=== PATIENT | female | born 1975 | race Hispanic/Latino ===

== ENCOUNTER 2019-11-15 13:51 | Emergency (ER) | payer OTHER ==
[2019-11-15] MEDS ORDERED: ACETAMINOPHEN 325 MG TAB ONE (14:16)
[2019-11-15 14:38] LABS: APPEARANCE,URINE Clear (CLEAR); BILIRUBIN,URINE Negative (NEGATIVE); COLOR,URINE Yellow (YELLOW); GLUCOSE, URINE (UA) Negative (NEGATIVE); KETONES,URINE Negative (NEGATIVE); LEUKOCYTE ESTERASE ,URINE Small (NEGATIVE); NITRATE,URINE Negative (NEGATIVE); OCCULT BLOOD,URINE Negative (NEGATIVE); PH,URINE >=9.0 (5.0-8.0); PROTEIN,URINE Negative (NEGATIVE)
[2019-11-15 14:41] LABS: HCG,QUAL RESULT NEGATIVE (NEGATIVE)
[2019-11-15 14:44] LABS: BACTERIA,URINE Rare /HPF (None Seen); RBC,URINE None Seen /HPF (0-1); SQUAMOUS EPITHELIAL CELL,UR 0-2 /HPF (0-2); WBC,URINE 0-1 /HPF (0-1)
[2019-11-15 14:46] LABS: RAPID GROUP A STREP NEGATIVE (NEGATIVE)
== END 2019-11-15 15:32 | disposition home or self-care (01) ==
LOC: EDH 13:51
DX: J20.9 Acute bronchitis, unspecified (principal); N39.0 Urinary tract infection, site not specified
CPT/HCPCS: 81001; 81025; 87804; 87880

== ENCOUNTER 2025-04-21 23:46 | Emergency (ER) | payer BC ==
[~2025-04-21] VITALS: Ht 165.1 cm; Wt 70.3 kg
--- NOTE | 2025-04-22 00:23 | ERN ---
General Chief Complaint: Numbness Stated Complaint: PARATHESIA Time Seen by MD: 23:56 History of Present Illness Initial Comments Ms. Mobley is a very pleasant 49-year-old female with a history of hypertension, hyperlipidemia and suspected anemia/lupus presents today with the ED with a left-sided facial pressure left left upper extremity tingling. Symptoms began approximately 2.5 hours prior to arrival while resting at home after work patient denies motor weakness but reports persistent paresthesias over the left face and arm. She has no associated chest pain or shortness of breath visual changes speech difficulties or gait instability. Patient endorses recent emotional stress related to personal relationship issues but denies current emotional stress patient reports prior diagnosis of anemia and recent oncology follow up: Lupus was previously suspected but reportedly not confirmed. On exam she has no focal weakness. Patient does have decreased sensation on the right side of her face. Patient says he feels numbness in the right side of her face in the left arm. Allergies: Coded Allergies: No Known Drug Allergies (Unverified Allergy, Unknown, 04/21/25) Past Medical History Past Medical History: High Cholesterol, Hypertension, Other Medical History Other: THYROID DISEASE Past Surgical History: Other Surgical History Other: LEFT EAR SX Female( History) LMP: Jan 19, 2025 ROS Dictation Constitutional: Negative for fever,chills, and weight loss Eyes: Negative for injury, pain,redness, and discharge ENT: Negative for injury,pain or swelling Cardiovascular: Negative for chest pain, palpitations, and edema Respiratory: Negative for shortness of breath, cough, and wheezing, Abdomen/GI: Negative for abdominal pain, nausea, vomiting, diarrhea, and constipation Back: Negative for injury and pain : Negative for injury, bleeding and discharge MS/Extremity: Negative for injury and deformity Skin: Negative for rash, and discoloration Neuro: Paresthesias in the left arm and face no focal weakness Psych: Recent psychosocial stressors Physical Exam Physical Exam Dictation General: awake, alert, NAD Head/Face: Normocephalic, atraumatic Eyes: PERRL, EOMI, vision at baseline ENT: oral cavity clear, TMs clear, no signs of infection Neck: Trachea midline, supple, no nuchal rigidity Cardiovascular: RRR, normal S1/S2, No MRGs, no JVD Respiratory: CTAB, no respiratory distress, No rales or wheezes Abdomen: Soft, non-tender, non-distended, normal bowel sounds, no guarding or rebound. Skin: Warm, dry, normal turgor, no rash MS/Extremity: Pulses equal, no cyanosis, neurovascular intact, FROM Neuro: COAx4, GCS 15, strength 5/5, CN 2-12 intact, normal cerebellar exam, normal gait,, patient does have paresthesias decreased sensation in the right side of her face and left arm. Psych: Normal behavior, mood, and affect normal Results Laboratory and Microbiology Lab and Micro Result Laboratory Tests Test 04/22/25 00:31 White Blood Count 9.3 K/uL (4.8-10.8) Red Blood Count 4.24 MIL/uL (4.00-5.50) Hemoglobin 12.6 g/dL (12.0-16.0) Hematocrit 35.7 % (36-48) L Mean Corpuscular Volume 84.2 fL (79-99) Mean Corpuscular Hemoglobin 29.7 pg (27.0-33.0) Mean Corpuscular Hemoglobin Concent 35.3 g/dL (32.0-36.0) Red Cell Distribution Width 14.3 % (11.0-15.5) Platelet Count 390 K/uL (130-400) Mean Platelet Volume 10.1 fL (7.5-10.5) Immature Granulocyte % (Auto) 0.5 % (0-1) Neutrophils (%) (Auto) 89.8 % (40.0-77.0) H Lymphocytes (%) (Auto) 7.0 % (21.0-51.0) L Monocytes (%) (Auto) 2.6 % (3.0-13.0) L Eosinophils (%) (Auto) 0.0 % (0.0-8.0) Basophils (%) (Auto) 0.1 % (0.0-5.0) Neutrophils # (Auto) 8.4 K/uL (1.8-7.7) H Lymphocytes # (Auto) 0.7 K/uL (1.0-4.8) L Monocytes # (Auto) 0.2 K/uL (0.1-1.0) Eosinophils # (Auto) 0.00 K/uL (0.00-0.70) Basophils # (Auto) 0.01 K/uL (0.00-0.20) Absolute Immature Granulocyte (auto 0.05 K/uL (0-1) Nucleated Red Blood Cells 0.0 % (0.0-0.19) White Cell Morphology Comment See comments Sodium Level 136 mmol/L (136-145) Potassium Level 4.0 mmol/L (3.5-5.1) Chloride Level 102 mmol/L (101-111) Carbon Dioxide Level 22 mmol/L (21-32) Blood Urea Nitrogen 9 mg/dL (7-18) Creatinine 0.7 mg/dL (0.5-1.0) Glomerular Filtration Rate Calc 106 mL/min (>90) Random Glucose 216 mg/dL (70-105) H Total Calcium 9.1 mg/dL (8.5-10.1) Total Bilirubin 0.4 mg/dL (0.2-1.0) Aspartate Amino Transf (AST/SGOT) 20 U/L (10-37) Alanine Aminotransferase (ALT/SGPT) 72 U/L (12-78) Alkaline Phosphatase 121 U/L (50-136) Total Protein 8.0 g/dL (6.0-8.3) Albumin 3.7 g/dL (3.5-5.0) MDM Patient did have a CT head and a CT angio head and neck which did not show any carotid or vertebral artery stenosis. Patient does have age-related cerebral volume loss as well as periventricular and subcortical white matter hypoattenuation consistent with chronic microangiopathic. Patient has no acute cranial abnormality MDM: Differential diagnosis: Anxiety, stress disorder Rationale: Tests considered and ordered secondary to shared decision making include: Previous outside records reviewed: Old ER visits. Risk of complication and/or morbidity or mortality of patient management: None Medications-Per medication reconciliation Need for hospitalization: Patient does not meet criteria for hospitalization. Need for emergency major/minor surgery: No There are no social concerns with this patient. Prescription drug management Prescriptions will include symptomatic care Patient's prior external medical records from other ER visits were reviewed by me as indicated. Prior testing and results from previous visits were reviewed. Prior tests were taken into account with medical decision making and resource utilization, independent historian/historians were used to obtain complete medical history. I independently interpreted the test that were performed, results were reviewed by me and considered findings on radiology if ordered. Medical management and examination interpretation discussions were had by me with other qualified healthcare professionals as indicated for the patient's care. ED Course Orders Procedure Category Date Status Time Ct Angio Head And Neck CT 04/22/25 Taken 00:04 Ct Head/Brain W/O CT 04/22/25 Taken Contrast 00:04 Cbc With Differential LAB 04/22/25 Complete 00:04 Comprehensive LAB 04/22/25 Complete Metabolic Panel 00:04 12 Lead Ekg Tracing- EKG 04/22/25 Logged Technical 00:04 Iohexol (Omnipaque) PHA 04/22/25 Complete 01:03 Current Medications Medications (Trade) Dose Ordered Sig/Adam Route PRN Reason Start Time Stop Time Status Last Admin Dose Admin Iohexol (Omnipaque) 75 ml STK-MED ONCE IV 04/22/25 01:03 04/22/25 01:03 DC Vital Signs Date Time Temp Pulse Resp B/P (MAP) Pulse Ox O2 Delivery O2 Flow Rate FiO2 04/22/25 02:31 83 23 133/77 96 Room Air* 0 21 04/22/25 01:29 92 24 127/72 96 Room Air* 0 21 04/22/25 00:09 97.9 90 27 154/87 98 Room Air* 0 21 04/21/25 23:48 98.1 93 18 142/83 97 Room Air 0 DX & DISP Disposition: Discharge Departure Impression: Primary Impression: Stress disorder, acute Condition: Stable Additional Instructions: Please follow up with your primary care physician to help with treatment of your stress disorder. Referrals: GABRIEL EGAN (PCP) MAGDIEL CORNELIUS MD Apr 22, 2025 00:23
[2025-04-22 00:40] LABS: BASOPHILS # (AUTO) 0.01 K/uL (0.00-0.20); BASOPHILS % (AUTO) 0.1 % (0.0-5.0); HEMATOCRIT 35.7 % (36-48); IMMATURE GRANULOCYTE ABSOLUTE 0.05 K/uL (0-1); LYMPHOCYTES # (AUTO) 0.7 K/uL (1.0-4.8); MEAN CORPUSCULAR HEMOGLOBIN 29.7 pg (27.0-33.0); MEAN CORPUSCULAR HGB CONC 35.3 g/dL (32.0-36.0); MEAN CORPUSCULAR VOLUME 84.2 fL (79-99); MONOCYTES # (AUTO) 0.2 K/uL (0.1-1.0); MONOCYTES % (AUTO) 2.6 % (3.0-13.0); NEUTROPHILS # (AUTO) 8.4 K/uL (1.8-7.7); NEUTROPHILS % (AUTO) 89.8 % (40.0-77.0); PLATELET COUNT (AUTO) 390 K/uL (130-400); RED BLOOD CELL COUNT(AUTO) 4.24 MIL/uL (4.00-5.50); RED CELL DISTRIBUTION WIDTH 14.3 % (11.0-15.5); WHITE BLOOD COUNT (AUTO) 9.3 K/uL (4.8-10.8)
[2025-04-22 00:48] LABS: CREATININE 0.7 mg/dL (0.5-1.0)
[2025-04-22 00:53] LABS: ALBUMIN 3.7 g/dL (3.5-5.0); BILIRUBIN,TOTAL 0.4 mg/dL (0.2-1.0)
[2025-04-22] MEDS ORDERED: IOHEXOL-350 75 ML VIAL IV ONE (01:03)
[2025-04-22] MEDS: LORazepam 1 MG TABLET PO ONE (03:31)
--- NOTE | 2025-04-22 04:03 | NUR ---
PATIENT WAS ADVISED NOT TO DRIVE OR OPERATE ANY HEAVY MACHINERY AFTER TAKING ATIVAN DOSE. PT WAS EDUCATED ABOUT THE POTENTIAL SIDE EFFECTS INCLUDING BUT NOT LIMITED TO DROWSINESS, DIZZINESS, AND IMPAIRED COORDINATION. PT VERBILZIED UNDERSTANDING OF EDUCATION. PT VERBILIZED DAUGHTER WILL BE TAKING HER HOME UPON DISCHARGE. PT SHOWS NO SIGNS OF DISTRESS.
[2025-04-22 04:10] VITALS: BP 132/63; PULSE 85; RESP 20; TEMP 98; O2SAT 95
--- NOTE | 2025-04-22 06:49 | EKG ---
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
--- NOTE | 2025-04-22 08:31 | HMCIMG ---
CT HEAD/BRAIN W/O CONTRAST HISTORY: Pain COMPARISON: None TECHNIQUE: Multiple sequential axial images of the head were obtained from the base of the skull through vertex. Patient was not given contrast through intravenous route. FINDINGS: The ventricles and extraventricular CSF spaces are dilated consistent with cerebral atrophy. Nonspecific white matter changes seen. There is no midline shift, mass effect or herniation. No acute intracranial bleed is seen. Visualized portion of the paranasal sinuses are grossly within normal limits. IMPRESSION: 1. No acute intracranial bleed is seen. CT was performed with one or more following dose reduction techniques: automated exposure control, adjustment of the mA and kv according to patient's size, or use of a iterative reconstruction technique.
--- NOTE | 2025-04-22 08:33 | HMCIMG ---
CT ANGIO HEAD AND NECK HISTORY: Pain COMPARISON: None TECHNIQUE: CT angiography of the head was performed. The study was performed using angiographic technique with maximum intensity projection reconstruction images. Patient was given 75 cc of Omnipaque through intravenous route. FINDINGS: The ventricles and extraventricular CSF spaces are nondilated for patient's age. There is no midline shift, mass effect or herniation. No acute intracranial bleed is seen. Visualized portion of the paranasal sinuses are grossly within normal limits. No CT evidence of cerebral aneurysm or abnormal arteriovenous communication is seen. Minimal atherosclerosis changes are present. Vertebrobasilar arterial system is grossly within normal limits. IMPRESSION: CTA Head 1. Minimal atherosclerotic disease. Otherwise unremarkable CTA of the brain. TECHNIQUE: CT angiography of the neck was performed. The study was performed using angiographic technique with maximum intensity projection reconstruction images. FINDINGS: There are degenerative changes of the cervical spine. Parapharyngeal fat planes are preserved bilaterally. The airway is patent. Normal enhancement of the thyroid gland is noted. Visualized portion of the lung apices are unremarkable. The common, internal and external carotid arteries are visualized. No hemodynamically significant lesion is seen of either extracranial carotid artery system. Both vertebral arteries are seen with antegrade flow. IMPRESSION: CTA Neck 1. Atherosclerotic disease. No hemodynamically significant lesion is seen of either extracranial carotid artery system. CT was performed with one or more following dose reduction techniques: automated exposure control, adjustment of the mA and kv according to patient's size, or use of a iterative reconstruction technique.
== END 2025-04-22 04:12 | disposition home or self-care (01) ==
LOC: EDH 23:46
DX: F43.0 Acute stress reaction (principal); R20.2 Paresthesia of skin; R20.0 Anesthesia of skin; R51.9 Headache, unspecified; I10 Essential (primary) hypertension; E78.00 Pure hypercholesterolemia, unspecified
CPT/HCPCS: 99285; 80053; 85025; 36415; 70496; 70498; 93005; 70450; Q9967